=== PATIENT | male | born 1945 | race Caucasian/White ===

== ENCOUNTER 2025-06-10 00:02 | Emergency (ER) | payer OTHER ==
[~2025-06-10] VITALS: Ht 172.7 cm; Wt 86.2 kg
[~2025-06-10 00:02] MED LIST: ALDOMET500 M1 PO; ASPIRIN325 M1 PO; ASPIRIN325 M2 PO; CIPROFLOXACIN500 MG PO; DIOVAN160 M1 PO; FISH OIL1000 MG PO; FLAGYL500 MG PO; LIPITOR10 MG PO; METAMUCIL1 PDR PO; MULTIPLE VITAMI1 CAP PO; NEXIUM40 MG; NIACIN100 M1 PO; PRILOSEC20 M1 PO; SUDAFED 12 HOU120 MG PO; VICODIN 5/500 505 MG PO; VITAMIN D5000 IU PO; XANAX0.5 MG PO
[2025-06-10 00:39] LABS: BASO # 0.0 10*3/uL (0.0-0.1); BASO % 0.4 % (0.0-1.0); EOS # 0.1 10*3/uL (0.0-0.4); EOS % 1.9 % (1.0-4.0); MEAN CELL VOLUME 90.6 fl (80.0-94.0); MEAN CORPUSCULAR HGB 31.1 pg (27.0-31.0); MEAN PLATELET VOLUME 9.3 fl (9.6-12.3); MONO # 0.7 10*3/uL (0.1-1.0); MONO % 11.8 % (3.0-9.0); NEUT # 3.5 10*3/uL (2.3-7.9); NEUT % 61.5 % (47.0-73.0); NUCLEATED RED BLOOD CELL 0.0 % (0.0-0.0); NUCLEATED RED BLOOD CELL 0.0 10*3/uL (0.0-0.0); PLATELET COUNT AUTOMATED 198 10*3/uL (130-400); RED CELL DISTRI WIDTH 12.6 % (0-14.5)
[2025-06-10] MEDS ORDERED: SODIUM CHLORIDE 0.9% 1,000 ML IV ONE (00:45)
[2025-06-10 00:59] LABS: BUN 18 mg/dl (9-23)
[2025-06-10 02:12] VITALS: BP 132/77
== END 2025-06-10 03:20 | disposition home or self-care (01) ==
LOC: ED 00:02
PROVIDERS: Internal Medicine
DX: I48.91 Unspecified atrial fibrillation (principal); D64.9 Anemia, unspecified; Z90.89 Acquired absence of other organs; Z88.1 Allergy status to other antibiotic agents; Z88.8 Allergy status to other drugs, medicaments and biological substances